=== PATIENT | male | born 1965 | race Caucasian/White ===

== ENCOUNTER 2016-11-09 11:02 | Emergency (ER) | payer OTHER ==
[~2016-11-09] VITALS: Ht 170.2 cm; Wt 138.8 kg
--- NOTE | ~2016-11-09 | CR72 ---
[facility] A Service of [facility] & [facility] RADIOLOGY TEXT RESULTS PATIENT: JONAH EDWARDS LOCATION: [facility] : 67 UNIT #: [id number] AGE: [address]: Jeny Griffin MD SEX: M ORDER DR: [id number] [facility] [address] [place], [place] [address] [id number] E MR#: [id number] Acc #: [id number] NAME: JONAH EDWARDS : 1965 SEX: M STUDY DATE/TIME: 11/09/2016 16:04 UNIT: [facility] ROOM: STUDY DESCRIPTION: CR Chest Single View Portable Attending Physician: Jeny Griffin M.D. Ordering Physician: Jeny Griffin M.D. Primary Care Physician: Cipriano Norris M.D. MEDICAL IMAGING REPORT This report is preliminary unless electronic signature is present EXAM Portable chest. HISTORY Chronic shortness of air, low O2 sats today at doctor's office. COMPARISON 10/11/2013. FINDINGS Portable view of the chest demonstrates linear densities right midlung, compatible with subsegmental atelectasis. No focal airspace disease or consolidation. No effusions. Heart, mediastinum unremarkable. No pneumothorax. Dictated by... Ana Paula Jackson M.D. THIS IS AN ELECTRONICALLY VERIFIED REPORT Ana Paula Jackson M.D. at 11/10/2016 3:12 PM [facility] TD: 11/10/2016 09:12 JOB #: [id number] MEDICAL IMAGING REPORT Page 1 of 1 COPY
--- NOTE | ~2016-11-09 | EKG ---
PATIENT: JONAH EDWARDS UNIT #: [id number] Ventricular Rate: 88 BPM Atrial Rate: 88 BPM P-R Interval: 158 ms QRS Duration: 84 ms Q-T Interval: 480 ms QTC Calculation(Bezet): 580 ms P [place]: 62 degrees Calculated R [place]: 85 degrees Calculated T [place]: 84 degrees Diagnosis Line: Normal sinus rhythm Diagnosis Line: Nonspecific T wave abnormality Diagnosis Line: Abnormal ECG Diagnosis Line: When compared with ECG of 11-OCT-2013 13:47, Diagnosis Line: Nonspecific T wave abnormality now evident in Diagnosis Line: Anterior leads Diagnosis Line: QT has lengthened Diagnosis Line: Confirmed by KIMBERLY LIMA MD ([id number]) on Diagnosis Line: 11/10/2016 12:34:56 PM INTERPRETING MD: CLARENCE LOCO
[~2016-11-09 11:02] MED LIST: ALBUTEROL17 GM INH; IBUPROFEN800 MG PO; NAPROSYN500 MG PO; NO MEDICATIONS; PREDNISONE PO; SPIRIVA18 MCG PO; ULTRACET TABLET1 TAB PO; ZITHROMAX PO
[2016-11-09 12:02] LABS: BASOPHIL# 0.1 X10e3 (0-0.3); BASOPHIL% 0.7 % (0-2.5); EOSINOPHIL# 0.2 X10e3 (0-0.7); EOSINOPHIL% 2.3 % (0.0-7.0); HEMATOCRIT 47.6 % (38.0-50.0); HEMOGLOBIN 16.6 gm/dL (13.0-16.0); LYMPHOCYTE# 2.1 X10e3 (1.0-3.5); LYMPHOCYTE% 26.6 % (17.0-45.0); MEAN CELL VOLUME 100.4 FL (83-96); MEAN CORPUSCULAR HEMOGLOBIN 35.1 PG (28-34); MEAN CORPUSCULAR HGB CONC 34.9 g/dL (30-36); MEAN PLATELET VOLUME 9.5 FL (6.5-11.5); MONOCYTE# 0.7 X10e3 (0-1.0); MONOCYTE% 8.8 % (3.0-12.0); NEUTROPHIL# 4.8 X10e3 (1.5-7.1); NEUTROPHIL% 61.6 % (40-75); PLATELET COUNT 184 X10e3 (140-420); RED BLOOD COUNT 4.75 X10e (3.90-5.60); RED CELL DISTRIBUTION WIDTH 12.7 % (11.0-15.5); WHITE BLOOD COUNT 7.9 X10e3 (4.0-10.5)
[2016-11-09 12:03] LABS: DIFF IND NO
[2016-11-09 12:25] LABS: ALBUMIN SERUM 4.4 g/dL (3.5-5.0); BILIRUBIN, DIRECT 0.3 mg/dL (0.0-0.2); BILIRUBIN,INDIRECT 1.2 mg/dL (0.0-0.9); BILIRUBIN,TOTAL 1.5 mg/dL (0.2-2.0); CALCIUM SERUM 8.9 mg/dL (8.4-10.2); GLOM FILT RATE Estimated 87.4 mL/min (>60); PROTEIN TOTAL SERUM 7.5 g/dL (6.0-8.3)
[2016-11-09 15:23] LABS: POC - CKMB <1.0 ng/mL (0.0-7.9); POC - TROPONIN <0.05 ng/mL (<=0.05)
[2016-11-09] MEDS ORDERED: PATIENT'S PHARMACY (15:29)
[2016-11-09] MEDS ORDERED: ALBUTEROL17 GM INH (15:30)
[2016-11-09] MEDS ORDERED: BUMEX2 MG PO (15:30)
[2016-11-09] MEDS ORDERED: BREO ELLIPTA 21 EACH INH (15:30)
[2016-11-09] MEDS ORDERED: IPRATR-ALBUTEROL3 ML NEB (15:30)
[2016-11-09] MEDS ORDERED: CHLOROTHIAZIDE500 MG PO (15:30)
== END 2016-11-09 17:49 | disposition home or self-care (01) ==
LOC: CED 11:02
PROVIDERS: Emergency Medicine
DX: J44.1 Chronic obstructive pulmonary disease with (acute) exacerbation (principal); I50.9 Heart failure, unspecified; F17.210 Nicotine dependence, cigarettes, uncomplicated; Z98.890 Other specified postprocedural states; Z79.899 Other long term (current) drug therapy
CPT/HCPCS: 36415; 71010; 80048; 80076; 82553; 83880; 84484; 85025; 93005; 94640; 96374; 99285; J2930